=== PATIENT | male | born 1975 | race Caucasian/White ===

== ENCOUNTER 2020-07-06 13:28 | Emergency (ER) | payer MEDICAID ==
[~2020-07-06] VITALS: Ht 190.5 cm; Wt 120.0 kg
[2020-07-06 13:30] VITALS: BP 117/78
[2020-07-06] MEDS ORDERED: KETOROLAC 30MG/ML VIAL IM ONE (13:45)
[2020-07-06] MEDS ORDERED: ACETAMINOPHEN 500MG TABLET PO ONE (13:45)
[2020-07-06 15:15] LABS: CLARITY URINE CLEAR (CLEAR); COLOR URINE YELLOW (YELLOW); KETONES URINE TRACE (NEGATIVE); LEUKOCYTE ESTERASE URINE NEGATIVE (NEGATIVE); NITRITE URINE NEGATIVE (NEGATIVE); OCCULT BLOOD URINE NEGATIVE (NEGATIVE); PROTEIN URINE NEGATIVE (NEGATIVE); SPECIFIC GRAVITY URINE 1.029 (1.005-1.030); UROBILINOGEN URINE 0.2 E.U./dL (0.2-1.0)
== END 2020-07-06 16:30 | disposition home or self-care (01) ==
LOC: ER 13:41
DX: M54.5 Low back pain (principal)
CPT/HCPCS: 81003; 96372; 99283; J1885